=== PATIENT | male | born 1950 | race Caucasian/White ===

== ENCOUNTER 2019-12-24 07:00 | Observation (INO) ==
[2019-12-24] MEDS ORDERED: Naloxone 0.4 MG/ML INJ IVP PRN (07:58)
[2019-12-24] MEDS ORDERED: Ondansetron 4 MG/2 ML VIAL IVP PRN (07:58)
[2019-12-24 09:44] LABS: Basophils # 0.1 K/mcL (0.0-0.2); Basophils % 0.5 %; Eosinophils % 0.1 %; Hematocrit 45.5 % (37.5-50.1); Hemoglobin 15.2 g/dL (12.9-16.9); Immature Granulocytes % 0.4 % (0-4); Lymphocytes # 1.4 K/mcL (0.6-4.6); Mean Corpuscular HGB Conc 33.4 g/dL (31.6-35.5); Mean Corpuscular Hemoglobin 30.8 pg (28.0-33.3); Mean Corpuscular Volume 92.3 fL (83.0-100.0); Mean Platelet Volume 11.7 fL (9.4-12.4); Monocytes # 0.7 K/mcL (0.0-1.3); Monocytes % 7.6 %; Neutrophils # 7.1 K/mcL (1.6-8.9); Platelet Count 205 K/mcL (140-400); Red Blood Count 4.93 M/mcL (4.19-5.50); Red Cell Distribution Width 13.6 % (11.5-14.5); Segmented Neutrophils % 76.4 %; White Blood Count 9.4 K/mcL (4.3-11.1)
[2019-12-24 10:03] LABS: Albumin 4.1 g/dL (3.5-5.7); Albumin/Globulin Ratio 1.6 (1.1-2.2); Bilirubin,Direct 1.7 mg/dL (0.0-0.2); Bilirubin,Indirect 1.3 mg/dL (0.0-1.0); Globulin 2.6 g/dL (2.4-3.5); Total Protein 6.7 g/dL (6.4-8.9)
[2019-12-24 10:04] LABS: BUN/Creatinine Ratio 25 (6-26); Blood Urea Nitrogen 18 mg/dL (8-23); Calcium 9.5 mg/dL (8.6-10.3); Carbon Dioxide 28 mEq/L (23-29); Chloride 104 mEq/L (98-107); Glucose 135 mg/dL (70-105); Magnesium 2.1 mg/dL (1.6-2.6); Osmolality,Calculated 292 (280-300); Phosphorous 3.4 mg/dL (2.7-4.5); Potassium 3.9 mEq/L (3.5-5.1); Sodium 139 mEq/L (136-145); eGFR For African Americans > 60 (> 60); eGFR For Non-African Americans > 60 (> 60)
[2019-12-24] MEDS ORDERED: *HR* FentaNYL (PF) 100 MCG/2 ML VIAL IVP PRN (13:25)
[2019-12-24] MEDS ORDERED: *HR* Propofol 200 MG/20 ML VIAL IVP ONE (13:28)
[2019-12-24] MEDS ORDERED: Ondansetron 4 MG/2 ML VIAL ONE (13:52)
[2019-12-24] MEDS ORDERED: Dexamethasone 4 MG/ML VIAL ONE (13:52)
[2019-12-24] MEDS ORDERED: *HR* Succinylcholine 200 MG/10 ML VIAL IVP ONE (13:52)
[2019-12-24] MEDS ORDERED: Lidocaine -MPF 2% 2 ML VIAL ONE (13:52)
[2019-12-24] MEDS ORDERED: Lidocaine -MPF 4% 5 ML AMPUL ONE (13:52)
[2019-12-24] MEDS ORDERED: Ringers Solution, Lactated 1,000 ML IVC SCH (14:00)
[2019-12-24] MEDS ORDERED: Indomethacin 50 MG SUPP.RECT RC ONE (14:18)
[2019-12-24] MEDS ORDERED: *HR* Metoprolol 5 MG/5 ML VIAL IVP ONE (14:27)
[2019-12-24] MEDS ORDERED: EPHEDrine 50 MG/ML VIAL ONE (14:36)
[2019-12-24] MEDS ORDERED: *HR* EPINEPHrine 1 MG/10 ML SYRINGE IVP PRN (14:43)
[2019-12-24] MEDS ORDERED: *HR* EPINEPHrine 1 MG/10 ML SYRINGE ONE (14:52)
[2019-12-25] MEDS: Ampicillin/Sulbactam 3,000 MG in 0.9 % Sodium Chloride Mini Bag 100 ML IVPB SCH ×3 (00:06→19:45)
[2019-12-25 04:36] LABS: Hematocrit 44.5 % (37.5-50.1); Hemoglobin 14.5 g/dL (12.9-16.9); Mean Corpuscular HGB Conc 32.6 g/dL (31.6-35.5); Mean Corpuscular Hemoglobin 30.6 pg (28.0-33.3); Mean Corpuscular Volume 93.9 fL (83.0-100.0); Mean Platelet Volume 12.2 fL (9.4-12.4); Platelet Count 207 K/mcL (140-400); Red Blood Count 4.74 M/mcL (4.19-5.50); Red Cell Distribution Width 13.6 % (11.5-14.5); White Blood Count 10.9 K/mcL (4.3-11.1)
[2019-12-25 04:55] LABS: Alanine Aminotransferase 234 Units/L (7-52); Albumin 3.7 g/dL (3.5-5.7); Albumin/Globulin Ratio 1.5 (1.1-2.2); Alkaline Phosphatase 166 Units/L (34-104); Aspartate Amino Transferase 122 Units/L (13-39); BUN/Creatinine Ratio 25 (6-26); Bilirubin,Direct 0.3 mg/dL (0.0-0.2); Bilirubin,Indirect 0.7 mg/dL (0.0-1.0); Blood Urea Nitrogen 16 mg/dL (8-23); Calcium 8.2 mg/dL (8.6-10.3); Carbon Dioxide 26 mEq/L (23-29); Chloride 107 mEq/L (98-107); Globulin 2.5 g/dL (2.4-3.5); Glucose 116 mg/dL (70-105); Osmolality,Calculated 292 (280-300); Potassium 3.8 mEq/L (3.5-5.1); Sodium 140 mEq/L (136-145); Total Protein 6.2 g/dL (6.4-8.9); eGFR For African Americans > 60 (> 60); eGFR For Non-African Americans > 60 (> 60)
[2019-12-25] MEDS ORDERED: Ondansetron 4 MG/2 ML VIAL IVP ONE (07:02)
[2019-12-25] MEDS ORDERED: Ketorolac 15 MG/ML VIAL IVP ONE (07:02)
[2019-12-25] MEDS ORDERED: *HR* OxyCODONE Immed Rel 5 MG TABLET PO PRN (07:02)
[2019-12-25] MEDS ORDERED: Ringers Solution, Lactated 1,000 ML IVC SCH ×2 (07:15→12:51)
[2019-12-25] MEDS ORDERED: Aspirin 81 MG TAB.CHEW PO SCH (09:00)
[2019-12-25] MEDS ORDERED: amLODIPine 5 MG TABLET PO SCH (09:00)
[2019-12-25] MEDS ORDERED: Finasteride 5 MG TABLET PO SCH (09:00)
[2019-12-25] MEDS ORDERED: *HR* Rocuronium Bromide 50 MG/5 ML VIAL ONE (09:54)
[2019-12-25] MEDS ORDERED: Ondansetron 4 MG/2 ML VIAL ONE (09:54)
[2019-12-25] MEDS ORDERED: Lidocaine -MPF 2% 2 ML VIAL ONE (09:54)
[2019-12-25] MEDS ORDERED: *HR* FentaNYL (PF) 100 MCG/2 ML VIAL ONE ×2 (09:54→11:31)
[2019-12-25] MEDS ORDERED: *HR* Propofol 200 MG/20 ML VIAL IVP ONE (09:54)
[2019-12-25] MEDS ORDERED: Dexamethasone 4 MG/ML VIAL ONE (09:54)
[2019-12-25] MEDS ORDERED: *HR* Succinylcholine 200 MG/10 ML VIAL IVP ONE (09:54)
[2019-12-25] MEDS ORDERED: Isovue-300 50ML VIAL ONE (10:03)
[2019-12-25] MEDS ORDERED: EPHEDrine 50 MG/ML VIAL ONE (10:50)
[2019-12-25] MEDS ORDERED: *HR* PHENYLEPHRINE 1,000 MCG/10 ML SYRINGE IVP ONE (10:50)
[2019-12-25] MEDS ORDERED: Neostigmine Methylsulfate 3 MG/3 ML SYRINGE ONE (11:28)
[2019-12-25] MEDS: *HR* HYDROmorphone PF 0.5 MG/0.5 ML SYRINGE IVP PRN ×2 (11:59→12:05)
[2019-12-25] MEDS ORDERED: Ondansetron 4 MG/2 ML VIAL IVP PRN (12:51)
[2019-12-25] MEDS ORDERED: *HR* EPINEPHrine 1 MG/10 ML SYRINGE IVP PRN (12:51)
[2019-12-25] MEDS ORDERED: *HR* FentaNYL (PF) 100 MCG/2 ML VIAL IVP PRN (12:51)
[2019-12-25] MEDS ORDERED: Naloxone 0.4 MG/ML INJ IVP PRN (12:51)
[2019-12-25] MEDS ORDERED: Ampicillin/Sulbactam 3,000 MG in 0.9 % Sodium Chloride Mini Bag 100 ML IVPB SCH (13:00)
[2019-12-26] MEDS: Ampicillin/Sulbactam 3,000 MG in 0.9 % Sodium Chloride Mini Bag 100 ML IVPB SCH ×2 (01:55→08:27)
[2019-12-26 05:31] LABS: Alanine Aminotransferase 224 Units/L (7-52); Albumin 3.9 g/dL (3.5-5.7); Albumin/Globulin Ratio 1.4 (1.1-2.2); Alkaline Phosphatase 159 Units/L (34-104); Aspartate Amino Transferase 115 Units/L (13-39); BUN/Creatinine Ratio 34 (6-26); Bilirubin,Total 0.6 mg/dL (0.3-1.0); Blood Urea Nitrogen 25 mg/dL (8-23); Calcium 8.5 mg/dL (8.6-10.3); Carbon Dioxide 17 mEq/L (23-29); Chloride 104 mEq/L (98-107); Globulin 2.7 g/dL (2.4-3.5); Glucose 105 mg/dL (70-105); Magnesium 2.1 mg/dL (1.6-2.6); Osmolality,Calculated 287 (280-300); Phosphorous 3.2 mg/dL (2.7-4.5); Potassium 4.5 mEq/L (3.5-5.1); Sodium 136 mEq/L (136-145); Total Protein 6.6 g/dL (6.4-8.9); eGFR For African Americans > 60 (> 60); eGFR For Non-African Americans > 60 (> 60)
[2019-12-26 07:09] LABS: Basophils # 0.1 K/mcL (0.0-0.2); Basophils % 0.3 %; Hematocrit 44.1 % (37.5-50.1); Hemoglobin 14.7 g/dL (12.9-16.9); Immature Granulocytes % 0.6 % (0-4); Lymphocytes # 2.1 K/mcL (0.6-4.6); Lymphocytes % 13.4 %; Mean Corpuscular HGB Conc 33.3 g/dL (31.6-35.5); Mean Corpuscular Hemoglobin 31.5 pg (28.0-33.3); Mean Corpuscular Volume 94.4 fL (83.0-100.0); Mean Platelet Volume 12.6 fL (9.4-12.4); Monocytes # 1.6 K/mcL (0.0-1.3); Monocytes % 9.9 %; Neutrophils # 12.1 K/mcL (1.6-8.9); Platelet Count 183 K/mcL (140-400); Red Blood Count 4.67 M/mcL (4.19-5.50); Red Cell Distribution Width 14.2 % (11.5-14.5); Segmented Neutrophils % 75.8 %
[2019-12-26 07:12] VITALS: BP 151/69
[2019-12-26] MEDS ORDERED: Aspirin 81 MG TAB.CHEW PO SCH (09:00)
[2019-12-26] MEDS ORDERED: Finasteride 5 MG TABLET PO SCH (09:00)
[2019-12-26] MEDS ORDERED: amLODIPine 5 MG TABLET PO SCH (09:00)
== END 2019-12-26 10:33 | disposition home or self-care (01) ==
LOC: CDU → SUATTDRO 08:36 → 3BNU 15:35
PROVIDERS: ADMIT Internal Medicine; ATTEND Internal Medicine